=== PATIENT | male | born 1955 | race Caucasian/White ===

== ENCOUNTER 2017-04-13 06:49 | Day surgery (SDC) | payer MEDICARE, MEDICAID ==
[2017-04-11 13:40] LABS: BASOPHILS % (AUTO) 0.4 % (0-1); EOSINOPHILS # (AUTO) 0.2 X10'3 (0-0.9); EOSINOPHILS % (AUTO) 2.7 % (0-6); HEMATOCRIT 34.8 % (42.0-52.0); HEMOGLOBIN 11.9 g/dl (14.0-17.9); LYMPHOCYTES # (AUTO) 3.2 X10'3 (1.1-4.8); LYMPHOCYTES % (AUTO) 44.6 % (21-51); MEAN CORPUSCULAR HEMOGLOBIN 31.8 PG (27.0-31.0); MEAN CORPUSCULAR HGB CONC 34.3 % (33.0-36.5); MEAN CORPUSCULAR VOLUME 92.5 FL (78-98); MONOCYTES # (AUTO) 0.8 X10'3 (0-0.9); MONOCYTES % (AUTO) 11.4 % (2-12); NEUTROPHILS % (AUTO) 40.9 % (42-75); PLATELET COUNT 260 X10'3 (140-440); RED BLOOD COUNT 3.76 X10'6 (4.70-6.10); RED CELL DISTRIBUTION WIDTH 13.2 % (11.5-14.5); WHITE BLOOD COUNT 7.2 X10'3 (4.5-11.0)
[2017-04-11 13:48] LABS: PARTIAL THROMBOPLASTIN TIME 35 SECONDS (22-32); PROTHROMBIN TIME 10.7 SECONDS (9.0-12.0)
[2017-04-11 14:04] LABS: ALANINE AMINOTRANSFERASE 42 U/L (12-78); ALBUMIN 3.9 G/DL (3.4-5.0); ALKALINE PHOSPHATASE 82 IU/L (46-116); ANION GAP 8 (8-16); ASPARTATE AMINO TRANSFERASE 31 U/L (10-37); BILIRUBIN,TOTAL 0.2 MG/DL (0.1-1.0); BLOOD UREA NITROGEN 23 MG/DL (7-18); BUN/CREATININE RATIO 32.9 (5.4-32.0); CALCIUM 9.1 MG/DL (8.5-10.1); CHLORIDE 103 MMOL/L (99-107); GLUCOSE 86 MG/DL (70-104); POTASSIUM 4.2 MMOL/L (3.5-5.1); SODIUM 139 MMOL/L (135-145); TOTAL CARBON DIOXIDE 27.6 MMOL/L (24-32); TOTAL PROTEIN 7.9 G/DL (6.4-8.2); eGFR > 90 ML/MIN
[2017-04-13] VITALS (12 sets, daily range): BP systolic 105–146; BP diastolic 61–84
[~2017-04-13] VITALS: Ht 182.9 cm; Wt 99.5 kg
[2017-04-13] MEDS ORDERED: diphenhydrAMINE 25mg capsule PO PRN (07:15)
[2017-04-13] MEDS ORDERED: normal saline 1000ml 1,000 ML IV SCH ×2 (07:15→10:30)
[2017-04-13] MEDS ORDERED: nitroGLYCERIN 0.4mg SUBLingual tab SL PRN (07:15)
[2017-04-13] MEDS ORDERED: LORazepam 0.5 MG tablet PO PRN (07:15)
[2017-04-13] MEDS ORDERED: BUSP5TAB3 PO (07:25)
[2017-04-13] MEDS ORDERED: OMEP40CA37 PO (07:26)
[2017-04-13] MEDS ORDERED: ASPI-1264 PO (07:26)
[2017-04-13] MEDS ORDERED: ROSU10TA PO (07:27)
[2017-04-13] MEDS ORDERED: OMEG1CAP13 PO (07:28)
[2017-04-13] MEDS ORDERED: METH-603 PO (07:29)
[2017-04-13] MEDS ORDERED: GEMF600T3 PO (07:29)
[2017-04-13] MEDS ORDERED: MULT-38 PO (07:30)
[2017-04-13] MEDS ORDERED: PROT10TA PO (07:31)
[2017-04-13] MEDS ORDERED: NITR0.4T51 SL (07:31)
[2017-04-13] MEDS ORDERED: AMLO2.5T2 PO (07:32)
[2017-04-13] MEDS ORDERED: ATEN-169 PO (07:33)
[2017-04-13] MEDS ORDERED: DICY10CA88 PO (07:34)
[2017-04-13] MEDS ORDERED: EPIN0.3P8 IM (07:34)
[2017-04-13] MEDS ORDERED: LIDOcaine 1%/PF (10mg/ml) 5ml vial ONE (08:46)
[2017-04-13] MEDS ORDERED: iohexol 350 MG/ML 50ML vial IV ONE (08:46)
[2017-04-13] MEDS ORDERED: fentaNYL/PF 50MCG/1 ML 2ML syringe ONE ×2 (08:46→09:53)
[2017-04-13] MEDS ORDERED: midazolam 2 mg/2 ml injection ONE (08:46)
[2017-04-13] MEDS ORDERED: iohexol 350MG/ML 100ml bottle IV ONE (08:47)
[2017-04-13] MEDS ORDERED: HYDROcodone/acetaminophen 5mg/325mg tablet PO PRN (10:30)
[2017-04-13] MEDS ORDERED: ondansetron/PF 4mg/2ml inj IV PRN (10:30)
[2017-04-13] MEDS ORDERED: HYDROcodone/acetaminophen 10/325mg tab PO PRN (10:30)
[2017-04-13] MEDS ORDERED: proCHLORperazine 10 MG/2 ml inj IV PRN (10:30)
[2017-04-13] MEDS ORDERED: OXAZEpam 15mg capsule PO PRN (10:30)
== END 2017-04-13 16:05 | disposition home or self-care (01) ==
LOC: SSTAY O 06:49
PROVIDERS: ATTEND Internal Medicine Cardiovascular Disease
DX: I25.10 Atherosclerotic heart disease of native coronary artery without angina pectoris (principal); I70.201 Unspecified atherosclerosis of native arteries of extremities, right leg; F41.1 Generalized anxiety disorder; G89.29 Other chronic pain; K21.9 Gastro-esophageal reflux disease without esophagitis; F11.20 Opioid dependence, uncomplicated; I10 Essential (primary) hypertension; Z86.74 Personal history of sudden cardiac arrest; Z88.8 Allergy status to other drugs, medicaments and biological substances; Z79.82 Long term (current) use of aspirin; Z79.899 Other long term (current) drug therapy
CPT/HCPCS: 36415; 71046; 80053; 85025; 85610; 85730; 93458; 99152; 99153; A6257; C1760; C1769; J1644; J2001; J2250; J3010; J7030; Q0163; Q9967; A4620

== ENCOUNTER 2019-03-24 14:21 | Emergency (ER) | payer MEDICARE, MEDICAID ==
[~2019-03-24] VITALS: Ht 182.9 cm; Wt 96.6 kg
[~2019-03-24 14:21] MED LIST: AMIO200T61 PO; ASPI-1264 PO; ATEN-169 PO; BUSP5TAB3 PO; DICY10CA88 PO; GEMF600T89 PO; METH-603 PO; OMEP40CA13 PO; PROT10TA PO; ROSU10TA2 PO
[2019-03-24 14:51] LABS: BASOPHILS % (AUTO) 0.5 % (0-1); EOSINOPHILS # (AUTO) 0.1 X10'3 (0-0.9); EOSINOPHILS % (AUTO) 1.6 % (0-6); HEMATOCRIT 39.7 % (42.0-52.0); HEMOGLOBIN 13.6 g/dl (14.0-17.9); LYMPHOCYTES # (AUTO) 3.8 X10'3 (1.1-4.8); LYMPHOCYTES % (AUTO) 42.9 % (21-51); MEAN CORPUSCULAR HEMOGLOBIN 31.8 PG (27.0-31.0); MEAN CORPUSCULAR HGB CONC 34.3 g/dL (33.0-36.5); MEAN CORPUSCULAR VOLUME 92.6 FL (78-98); MEAN PLATELET VOLUME 7.1 FL (7.4-10.4); MONOCYTES % (AUTO) 10.9 % (2-12); NEUTROPHILS # (AUTO) 3.9 X10'3 (1.8-7.7); NEUTROPHILS % (AUTO) 44.1 % (42-75); PLATELET COUNT 250 X10'3 (140-440); RED BLOOD COUNT 4.29 X10'6 (4.70-6.10); RED CELL DISTRIBUTION WIDTH 13.8 % (11.5-14.5); WHITE BLOOD COUNT 8.9 X10'3 (4.5-11.0)
[2019-03-24] MEDS ORDERED: metoprolol tartrate 1mg/ml inj IV ONE ×2 (15:00→15:25)
[2019-03-24 15:05] LABS: ALANINE AMINOTRANSFERASE 43 U/L (12-78); ALBUMIN 3.9 G/DL (3.4-5.0); ALBUMIN/GLOBULIN RATIO 0.9 (1.1-1.5); ALKALINE PHOSPHATASE 71 IU/L (46-116); ANION GAP 12 (8-16); ASPARTATE AMINO TRANSFERASE 24 U/L (10-37); BILIRUBIN,TOTAL 0.2 MG/DL (0.1-1.0); BLOOD UREA NITROGEN 19 MG/DL (7-18); BUN/CREATININE RATIO 27.9 (5.4-32.0); CHLORIDE 103 MMOL/L (99-107); CREATININE 0.68 MG/DL (0.60-1.10); GLUCOSE 104 MG/DL (70-104); POTASSIUM 3.7 MMOL/L (3.5-5.1); SODIUM 141 MMOL/L (135-145); TOTAL CARBON DIOXIDE 25.9 MMOL/L (24-32); TOTAL PROTEIN 8.2 G/DL (6.4-8.2); eGFR > 90 ML/MIN
[2019-03-24 15:19] LABS: PARTIAL THROMBOPLASTIN TIME 35 SECONDS (22-32)
[2019-03-24 15:27] LABS: MAGNESIUM 1.5 MG/DL (1.5-2.4); PHOSPHORUS 3.3 MG/DL (2.3-4.5)
[2019-03-24] MEDS ORDERED: diltiazem 5mg/ml 5ml inj. IV ONE (15:45)
[2019-03-24 15:55] VITALS: BP 119/90
== END 2019-03-24 16:29 | disposition home or self-care (01) ==
LOC: ER 14:22
DX: I48.91 Unspecified atrial fibrillation (principal); E78.00 Pure hypercholesterolemia, unspecified; I25.2 Old myocardial infarction; G89.29 Other chronic pain; Z98.890 Other specified postprocedural states; Z88.8 Allergy status to other drugs, medicaments and biological substances; Z79.82 Long term (current) use of aspirin; Z79.899 Other long term (current) drug therapy
CPT/HCPCS: 36415; 71045; 80053; 83735; 83880; 84100; 84484; 85025; 85610; 85730; 93005; 96374; 96375; 99284; J3490

== ENCOUNTER 2023-06-23 07:28 | Emergency (ER) | payer MEDICARE, MEDICAID ==
[~2023-06-23] VITALS: Ht 182.9 cm; Wt 92.0 kg
[~2023-06-23 07:28] MED LIST changes: +AMI200T PO; -AMIO200T61 PO; -OMEP40CA13 PO; +OMEP40CA21 PO
[2023-06-23 07:42] VITALS: BP 172/91; PULSE 55; RESP 18; TEMP 98.4; O2SAT 96
[2023-06-23 08:53] LABS: ALANINE AMINOTRANSFERASE 44 U/L (12-78); ALBUMIN 3.5 G/DL (3.4-5.0); ALBUMIN/GLOBULIN RATIO 0.8 (1.1-1.5); ALKALINE PHOSPHATASE 100 IU/L (46-116); ANION GAP 9 (8-16); ASPARTATE AMINO TRANSFERASE 30 U/L (10-37); BILIRUBIN,TOTAL 0.3 MG/DL (0.1-1.0); BLOOD UREA NITROGEN 14 MG/DL (7-18); BUN/CREATININE RATIO 16.9 (10.0-20.0); CALCIUM 9.4 MG/DL (8.5-10.1); CHLORIDE 105 MMOL/L (99-107); CREATININE 0.83 MG/DL (0.60-1.10); GLUCOSE 120 MG/DL (70-104); POTASSIUM 3.7 MMOL/L (3.5-5.1); SODIUM 142 MMOL/L (135-145); TOTAL CARBON DIOXIDE 28.2 MMOL/L (24-32); TOTAL PROTEIN 7.7 G/DL (6.4-8.2); eCRCL 93 ML/MIN; eGFR > 90 ML/MIN
[2023-06-23 09:01] LABS: PRO BRAIN NATRIURETIC PEPTIDE 128 PG/ML (0-125)
== END 2023-06-23 13:27 | disposition left against medical advice (07) ==
LOC: ER 07:29
DX: R07.9 Chest pain, unspecified (principal); Z53.21 Procedure and treatment not carried out due to patient leaving prior to being seen by health care provider
CPT/HCPCS: 36415; 71045; 80053; 83880; 84484; 93005; 99281